=== PATIENT | female | born 1960 | race Caucasian/White ===

== ENCOUNTER → 2016-06-03 | Outpatient (CLI) | payer OTHER ==
[~2016-06-03] MED LIST: ASPIRIN EC325 MG PO; B-COMPLEX-VITA1 EACH PO; BENGAY ULTRA S1 EACH TP; BUPROPION XL300 MG PO; COZAAR25 MG PO; CRESTOR40 MG PO; CRESTOR5 MG PO; CYANOCOBALAM1000 MCG PO; CYMBALTA30 MG PO; ERGOCALCIF50000 UNIT PO; EXTRA STRENGTH500 M1 PO; FLEXERIL10 MG PO; GLIPIZIDE XL10 MG PO; GLIPIZIDE10 MG PO; GLUCOTROL XL10 MG PO; GLUCOTROL10 MG PO; HUMALOG100 UNIT/2 SC; LEVEMIR FL100 UNIT/1 SC; LEVEMIR FL100 UNITS/ SC; LO-DOSE ASPIRIN81 M1 PO; LOPRESSOR25 MG PO; LOSARTAN POTASS25 MG PO; LUTEIN20 M1 PO; LUTEIN20 MG PO; MELOXICAM15 MG PO; METOPROLOL SUCC25 MG PO; METOPROLOL SUCC50 MG PO; MOBIC15 MG PO; NITROGLYCERIN0.4 MG SL; NITROSTAT0.4 MG SL; NOVOLIN SQ; NOVOLOG PE100 UNITS/ SC; TORADOL10 MG PO; TYLENOL EXTRA500 MG PO; VITAMIN B-12250 MCG PO; VITAMIN B-6100 MG PO; VITAMIN B-6250 MG PO; VITAMIN D31000 UNI2 PO; [UNRECOGNIZED DRUG - OTHER] PO
== END | disposition home or self-care (01) ==
LOC: CDC 08:50
DX: R94.31 Abnormal electrocardiogram [ECG] [EKG] (principal); G56.01 Carpal tunnel syndrome, right upper limb
CPT/HCPCS: 93000

== ENCOUNTER 2016-06-15 12:31 | Day surgery (SDC) | payer OTHER ==
[~2016-06-15] VITALS: Ht 157.5 cm; Wt 104.0 kg
[2016-06-15 13:01] VITALS: BP 140/80
[2016-06-15 13:11] LABS: POINT-OF-CARE METER ID UU14174212
[2016-06-15 13:57] LABS: EOSINOPHIL (%) 2.8 % (0-5); EOSINOPHIL COUNT 0.3 K/uL (0-0.3); HEMATOCRIT 38.9 % (36.0-46.0); IMMATURE GRANULOCYTE (%) 0.2 % (0.0-0.7); LYMPHOCYTE COUNT 2.4 K/uL (1.0-2.8); MCHC 33.9 G/DL (30.0-36.0); MCV 91.3 FL (83-99); MEAN PLAT.VOLUME 9.7 uM^3 (9.5-12.4); MONOCYTE (%) 8.4 % (3-12); MONOCYTE COUNT 0.8 K/uL (0-0.8); NEUTROPHIL (%) 61.4 % (45-76); NEUTROPHIL COUNT 5.6 K/uL (1.8-6.4); PLATELET COUNT 271 K/uL (156-360); RBC DIS.WIDTH-CV 12.5 % (11.8-14.6); RBC DIS.WIDTH-SD 41.3 % (39-53); RED BLOOD COUNT 4.26 M/uL (3.80-5.20)
[2016-06-15 14:18] LABS: METH RESISTANT S AUREUS PCR NEGATIVE (NEGATIVE); PROBE CHECK PASS; SPECIMEN PROCESSING CONTROL PASS
[2016-06-15 17:26] VITALS: BP 121/61
[2016-06-15 18:15] VITALS: BP 116/67
== END 2016-06-15 18:15 | disposition home or self-care (01) ==
LOC: SDC 12:31
PROVIDERS: Orthopaedic Surgery Hand Surgery
DX: G56.01 Carpal tunnel syndrome, right upper limb (principal); E11.9 Type 2 diabetes mellitus without complications; D64.9 Anemia, unspecified; G62.9 Polyneuropathy, unspecified; I25.10 Atherosclerotic heart disease of native coronary artery without angina pectoris; Z95.1 Presence of aortocoronary bypass graft; E78.5 Hyperlipidemia, unspecified; E55.9 Vitamin D deficiency, unspecified; Z82.49 Family history of ischemic heart disease and other diseases of the circulatory system; Z83.3 Family history of diabetes mellitus; Z80.9 Family history of malignant neoplasm, unspecified
CPT/HCPCS: 82948; 85025; 87641; J2250; S0020

== ENCOUNTER 2016-09-10 17:18 | Emergency (ER) | payer OTHER ==
[~2016-09-10] VITALS: Ht 157.5 cm; Wt 102.5 kg
[2016-09-10 18:10] LABS: HEMATOCRIT 40.2 % (36.0-46.0); MCH 30.6 PG (29.0-34.0); MCHC 34.3 G/DL (30.0-36.0); MCV 89.1 FL (83-99); MEAN PLAT.VOLUME 9.4 uM^3 (9.5-12.4); PLATELET COUNT 283 K/uL (156-360); RBC DIS.WIDTH-CV 11.4 % (11.8-14.6); RED BLOOD COUNT 4.51 M/uL (3.80-5.20); WHITE BLOOD COUNT 7.8 K/uL (4.1-10.2)
[2016-09-10 18:19] LABS: CHLORIDE 101 mEq/L (99-109)
[2016-09-10 18:20] LABS: SODIUM 136 mEq/L (136-147)
[2016-09-10 18:21] LABS: GLUCOSE 369 mg/dL (70-99)
[2016-09-10 18:23] LABS: ANION GAP 14 MEQ/L (2-14)
[2016-09-10 18:25] LABS: GFR ESTIMATE (CALCULATED) > 59 mL/min/
[2016-09-10 18:26] LABS: UREA NITROGEN (BUN) 15 mg/dL (9-23)
[2016-09-10 18:31] LABS: TROP-I INTERPRETATION NEGATIVE; TROPONIN-I < 0.01 ng/mL (0.0-0.30)
[2016-09-10 20:06] LABS: ADD MIUA? NO; BILIRUBIN NEGATIVE; BLOOD NEGATIVE; COLOR STRAW ((YELLOW)); GLUCOSE (STRIP) >=500; KETONES NEGATIVE; LEUKOCYTES NEGATIVE; NITRITE NEGATIVE; PROTEIN (STRIP) NEGATIVE; SPECIFIC GRAVITY 1.029 (1.000-1.030); UCUL ADDED? NO; UROBILINOGEN 0.2 MG/DL (0.2-1.0)
[2016-09-10 20:32] LABS: TROP-I INTERPRETATION NEGATIVE; TROPONIN-I < 0.01 ng/mL (0.0-0.30)
[2016-09-10 21:50] VITALS: BP 136/73
== END 2016-09-10 21:52 | disposition home or self-care (01) ==
LOC: EME 17:18
PROVIDERS: Physician Assistant
DX: R07.9 Chest pain, unspecified (principal); E11.65 Type 2 diabetes mellitus with hyperglycemia; M79.7 Fibromyalgia; Z95.1 Presence of aortocoronary bypass graft; Z79.82 Long term (current) use of aspirin; Z79.4 Long term (current) use of insulin; Z87.891 Personal history of nicotine dependence
CPT/HCPCS: 71020; 80048; 81003; 82010; 84484; 85027; 93005; 99281; 99284

== ENCOUNTER 2017-07-04 20:51 | Observation (INO) | payer OTHER ==
[~2017-07-04] VITALS: Ht 157.5 cm; Wt 105.7 kg
[2017-07-04 21:51] LABS: HEMOGLOBIN 13.5 G/DL (11.9-15.5); MCH 30.8 PG (29.0-34.0); MCHC 34.6 G/DL (30.0-36.0); MCV 88.8 FL (83-99); PLATELET COUNT 298 K/uL (156-360); RBC DIS.WIDTH-CV 11.9 % (11.8-14.6); RBC DIS.WIDTH-SD 37.9 % (39-53); RED BLOOD COUNT 4.39 M/uL (3.80-5.20); WHITE BLOOD COUNT 9.6 K/uL (4.1-10.2)
[2017-07-04 22:00] LABS: CHLORIDE 105 mEq/L (99-109); POTASSIUM 3.7 mEq/L (3.7-5.4); SODIUM 139 mEq/L (136-147)
[2017-07-04 22:02] LABS: GLUCOSE 137 mg/dL (70-99)
[2017-07-04 22:06] LABS: CREATININE 0.7 mg/dL (0.6-1.3); GFR ESTIMATE (CALCULATED) > 59 mL/min/
[2017-07-04 22:07] LABS: UREA NITROGEN (BUN) 21 mg/dL (9-23)
[2017-07-04 22:13] LABS: TROP-I INTERPRETATION NEGATIVE; TROPONIN-I 0.01 ng/mL (0.0-0.30)
[2017-07-04] MEDS ORDERED: B-12500 MC1 SL (22:33)
[2017-07-04] MEDS ORDERED: NOVOLOG PE100 UNITS/ SC (22:34)
[2017-07-04] MEDS ORDERED: LEVEMIR100 UNIT/2 SC (22:37)
[2017-07-04] MEDS ORDERED: NEURONTIN100 MG PO (22:37)
[2017-07-04] MEDS ORDERED: ICY HOT CREAM35.4 G1 TP (22:38)
[2017-07-04] MEDS ORDERED: LIDODERM 5% P1 PATCH TD (22:38)
[2017-07-05 00:35] VITALS: BP 113/58
[2017-07-05 03:45] LABS: TROP-I INTERPRETATION NEGATIVE; TROPONIN-I 0.08 ng/mL (0.0-0.30)
[2017-07-05 04:43] VITALS: BP 120/60
[2017-07-05 07:35] VITALS: BP 128/59
[2017-07-05 08:50] VITALS: BP 136/63
[2017-07-05 10:02] LABS: TROP-I INTERPRETATION NEGATIVE; TROPONIN-I 0.06 ng/mL (0.0-0.30)
[2017-07-05 11:38] VITALS: BP 112/58
== END 2017-07-05 13:03 | disposition home or self-care (01) ==
LOC: EME → EDBD 20:51 → EME 20:51 → 5WEST 22:25 → EDOF 22:25 → ENRESERV 22:54 → 5WEST 07-05 00:22
PROVIDERS: Emergency Medicine; Family Medicine
DX: R07.9 Chest pain, unspecified (principal); I25.119 Atherosclerotic heart disease of native coronary artery with unspecified angina pectoris; Z95.1 Presence of aortocoronary bypass graft; E11.65 Type 2 diabetes mellitus with hyperglycemia; E11.40 Type 2 diabetes mellitus with diabetic neuropathy, unspecified; I10 Essential (primary) hypertension; E78.5 Hyperlipidemia, unspecified; E66.9 Obesity, unspecified; M79.7 Fibromyalgia; F32.9 Major depressive disorder, single episode, unspecified; M19.90 Unspecified osteoarthritis, unspecified site; Z90.49 Acquired absence of other specified parts of digestive tract; Z90.710 Acquired absence of both cervix and uterus; Z82.49 Family history of ischemic heart disease and other diseases of the circulatory system; Z88.5 Allergy status to narcotic agent; Z88.6 Allergy status to analgesic agent; Z88.1 Allergy status to other antibiotic agents; Z88.8 Allergy status to other drugs, medicaments and biological substances; Z87.891 Personal history of nicotine dependence; Z79.82 Long term (current) use of aspirin; Z79.4 Long term (current) use of insulin
CPT/HCPCS: 71046; 80048; 82948; 84484; 85027; 87641; 93005; 99281; 99285; G0378; J1815

== ENCOUNTER 2017-07-06 07:33 | Observation (INO) | payer OTHER ==
[~2017-07-06] VITALS: Ht 157.5 cm; Wt 103.7 kg
[~2017-07-06 07:33] MED LIST changes: +B-12500 MC1 SL; +ICY HOT CREAM35.4 G1 TP; +LEVEMIR100 UNIT/2 SC; +LIDODERM 5% P1 PATCH TD; +NEURONTIN100 MG PO
[2017-07-06 17:50] VITALS: BP 118/58
[2017-07-06 17:52] VITALS: BP 118/58
[2017-07-06 19:42] VITALS: BP 125/86
[2017-07-07] MEDS ORDERED: ASPIRIN325 MG PO (00:13)
[2017-07-07 00:25] VITALS: BP 121/70
[2017-07-07 02:27] VITALS: BP 120/72
[2017-07-07 05:14] LABS: BASOPHIL (%) 0.2 % (0-1); EOSINOPHIL (%) 1.9 % (0-5); EOSINOPHIL COUNT 0.2 K/uL (0-0.3); HEMATOCRIT 37.5 % (36.0-46.0); HEMOGLOBIN 12.9 G/DL (11.9-15.5); IMMATURE GRANULOCYTE (%) 0.4 % (0.0-0.7); LYMPHOCYTE (%) 20.4 % (15-42); LYMPHOCYTE COUNT 1.8 K/uL (1.0-2.8); MCH 30.9 PG (29.0-34.0); MCHC 34.4 G/DL (30.0-36.0); MCV 89.9 FL (83-99); MONOCYTE (%) 8.1 % (3-12); MONOCYTE COUNT 0.7 K/uL (0-0.8); NEUTROPHIL COUNT 5.9 K/uL (1.8-6.4); PLATELET COUNT 268 K/uL (156-360); RBC DIS.WIDTH-CV 11.9 % (11.8-14.6); RBC DIS.WIDTH-SD 38.6 % (39-53); RED BLOOD COUNT 4.17 M/uL (3.80-5.20); WHITE BLOOD COUNT 8.6 K/uL (4.1-10.2)
[2017-07-07 05:44] LABS: CHLORIDE 103 MEQ/L (99-109); CREATININE 0.6 MG/DL (0.6-1.3); GFR ESTIMATE (CALCULATED) > 59 mL/min/; GLUCOSE 167 mg/dL (70-99); POTASSIUM 4.2 MEQ/L (3.7-5.4); SODIUM 138 MEQ/L (136-147); UREA NITROGEN (BUN) 11 mg/dL (9-23)
[2017-07-07 07:30] VITALS: BP 119/57
[2017-07-07] MEDS ORDERED: BRILINTA90 MG PO (12:02)
[2017-07-07] MEDS ORDERED: ASPIRIN81 M2 PO (12:02)
[2017-07-07 13:04] VITALS: BP 122/66
== END 2017-07-07 15:02 | disposition home or self-care (01) ==
LOC: CATH 07:33 → ENRESERV 12:43 → 2SOUTH 12:44 → 4EAST 12:44 → ENRESERV 14:20 → 4EAST 16:24 → ENPENDDIS 07-07 → 4EAST 07-07 15:02
PROVIDERS: Internal Medicine Interventional Cardiology
DX: I25.10 Atherosclerotic heart disease of native coronary artery without angina pectoris (principal); I25.810 Atherosclerosis of coronary artery bypass graft(s) without angina pectoris; I34.0 Nonrheumatic mitral (valve) insufficiency; Z95.1 Presence of aortocoronary bypass graft; E66.9 Obesity, unspecified; Z68.41 Body mass index [BMI] 40.0-44.9, adult; E11.9 Type 2 diabetes mellitus without complications; I10 Essential (primary) hypertension; E78.5 Hyperlipidemia, unspecified; Z88.1 Allergy status to other antibiotic agents; Z88.5 Allergy status to narcotic agent; Z88.8 Allergy status to other drugs, medicaments and biological substances
CPT/HCPCS: 80048; 82948; 85025; 93005; C1725; C1760; C1769; C1874; C1887; C1894; G0378; J0461; J1644; J1815; J2250; J2405; J3010

== ENCOUNTER 2017-08-25 08:02 | Emergency (ER) | payer OTHER ==
[~2017-08-25] VITALS: Ht 157.5 cm; Wt 108.7 kg
[~2017-08-25 08:02] MED LIST changes: +ASPIRIN325 MG PO; +ASPIRIN81 M2 PO; +BRILINTA90 MG PO
[2017-08-25 09:16] LABS: HEMOGLOBIN 13.5 G/DL (11.9-15.5); MCH 31.2 PG (29.0-34.0); MCHC 34.6 G/DL (30.0-36.0); MCV 90.1 FL (83-99); PLATELET COUNT 257 K/uL (156-360); RBC DIS.WIDTH-CV 12.6 % (11.8-14.6); RBC DIS.WIDTH-SD 41.6 % (39-53); RED BLOOD COUNT 4.33 M/uL (3.80-5.20); WHITE BLOOD COUNT 7.8 K/uL (4.1-10.2)
[2017-08-25 09:29] LABS: CHLORIDE 106 mEq/L (99-109); POTASSIUM 4.6 mEq/L (3.7-5.4); SODIUM 139 mEq/L (136-147)
[2017-08-25 09:30] LABS: GLUCOSE 229 mg/dL (70-99)
[2017-08-25 09:34] LABS: GFR ESTIMATE (CALCULATED) > 59 mL/min/
[2017-08-25 09:35] LABS: UREA NITROGEN (BUN) 18 mg/dL (9-23)
[2017-08-25 11:12] LABS: TROP-I INTERPRETATION NEGATIVE; TROPONIN-I < 0.01 ng/mL (0.0-0.30)
[2017-08-25 11:42] LABS: D-DIMER ELISA < 150.00 ng/mLDDU (<230)
[2017-08-25 13:24] LABS: TROP-I INTERPRETATION NEGATIVE; TROPONIN-I < 0.01 ng/mL (0.0-0.30)
[2017-08-25 13:50] VITALS: BP 158/74
== END 2017-08-25 14:29 | disposition home or self-care (01) ==
LOC: EME 08:02
PROVIDERS: Emergency Medicine
DX: R06.00 Dyspnea, unspecified (principal); R94.31 Abnormal electrocardiogram [ECG] [EKG]; E11.9 Type 2 diabetes mellitus without complications; I25.10 Atherosclerotic heart disease of native coronary artery without angina pectoris; M79.7 Fibromyalgia; F32.9 Major depressive disorder, single episode, unspecified; Z79.4 Long term (current) use of insulin; Z87.891 Personal history of nicotine dependence; Z95.1 Presence of aortocoronary bypass graft; Z86.14 Personal history of Methicillin resistant Staphylococcus aureus infection; Z87.09 Personal history of other diseases of the respiratory system; Z90.49 Acquired absence of other specified parts of digestive tract; Z88.5 Allergy status to narcotic agent; Z88.1 Allergy status to other antibiotic agents; Z88.6 Allergy status to analgesic agent; Z88.8 Allergy status to other drugs, medicaments and biological substances
CPT/HCPCS: 71046; 80048; 83880; 84484; 85027; 85379; 93005; 99281; 99284